=== PATIENT | female | born 1975 | race Caucasian/White ===

== ENCOUNTER → 2017-02-21 | Outpatient (CLI) | payer OTHER, SELFPAY ==
[~2017-02-21] MED LIST: AMOX500 PO; Adipex-P37.5 MG PO; BUPR100ER PO; Cyclobenzaprine5 MG PO; DIAZ5 PO; DOCU100 PO; FLUO10 PO; IBUP800 PO; Imitrex50 MG PO; Norco 10-325 T1 EACH PO; OXYACE5T PO; PENVK250 PO; TRAM50 PO; Zofran Odt4 MG SL
== END ==
LOC: LAB SHORT 12:37 → PLD 12:37
DX: R23.4 Changes in skin texture (principal)
CPT/HCPCS: 88305

== ENCOUNTER → 2018-08-14 | Outpatient (CLI) | payer OTHER ==
[2018-08-16 18:06] LABS: HPV 16 Negative (Negative); HPV 18 Negative (Negative); HPV OTHER HR TYPES Positive (Negative)
== END | disposition home or self-care (01) ==
LOC: LAB SHORT 14:45 → LAB 14:45
PROVIDERS: Obstetrics & Gynecology
DX: Z01.419 Encounter for gynecological examination (general) (routine) without abnormal findings (principal)
CPT/HCPCS: 87624; 87625; G0123

== ENCOUNTER → 2020-11-17 | Outpatient (CLI) | payer OTHER ==
[2020-11-18 14:10] LABS: HPV 16 Negative (Negative); HPV 18 Positive (Negative); HPV OTHER HR TYPES Negative (Negative)
== END | disposition home or self-care (01) ==
LOC: LAB 16:45 → LAB SHORT 16:45
PROVIDERS: Family Medicine
DX: Z01.419 Encounter for gynecological examination (general) (routine) without abnormal findings (principal)
CPT/HCPCS: 87624; G0123

== ENCOUNTER → 2021-04-28 | Outpatient (CLI) | payer OTHER ==
[~2021-04-28] MED LIST changes: +IMITREX50 M2 PO; +ONDA4ODT MM
== END | disposition home or self-care (01) ==
LOC: LAB SHORT 09:52 → LAB 09:52
DX: N30.00 Acute cystitis without hematuria (principal); R30.0 Dysuria; R35.0 Frequency of micturition
CPT/HCPCS: 87077; 87086; 87147; 87186

== ENCOUNTER → 2023-11-10 | Outpatient (CLI) | payer BC ==
[2023-11-18 06:54] LABS: HPV HIGH RISK BY TMA Detected; HPV SOURCE Vaginal
[2023-11-20 13:41] LABS: HPV GENOTYPE 16 BY TMA Not Detected; HPV GENOTYPE 18/45 BY TMA Not Detected; HPVG SOURCE Vaginal
== END | disposition home or self-care (01) ==
LOC: LAB SHORT 09:47 → LAB 09:47
PROVIDERS: Family Medicine
DX: Z01.419 Encounter for gynecological examination (general) (routine) without abnormal findings (principal)
CPT/HCPCS: 87624; 87625; G0123

== ENCOUNTER → 2023-12-27 | Outpatient (CLI) | payer BC ==
[2023-12-27 09:51] LABS: Source, Urine Clean Catch
[2023-12-27 13:53] LABS: Appearance, Urine Hazy (Clear); Bilirubin, Urine Neg (Neg); Blood, Urine Neg (Neg); Glucose Qualitative, Urine Neg (Neg); Ketones, Urine Neg (Neg); Leukocyte Esterase, Urine Neg (Neg); Nitrite, Urine Neg (Neg); Protein, Urine Neg (Neg); Urobilinogen, Urine NORM (Normal); pH, Urine 6.5 (5.0-8.0)
[2023-12-27 14:12] LABS: Color, Urine Pale Yellow (P-Yellow)
[2023-12-27 14:37] LABS: Amorphous Light (0-Heavy); Bacteria Rare /hpf; Red Blood Cells, Urine 0-2 /hpf (0-2); Squamous Epithelial Cells Few /hpf (Few); White Blood Cells, Urine 0-2 /hpf (0-5)
== END ==
LOC: LAB SHORT 09:50 → LAB 09:50
PROVIDERS: Obstetrics & Gynecology
DX: N39.3 Stress incontinence (female) (male) (principal)
CPT/HCPCS: 81001

== ENCOUNTER 2024-03-15 11:00 | Inpatient (IN) | payer BC ==
[2024-03-15] VITALS (18 sets, daily range): BP systolic 115–144; BP diastolic 71–98
[~2024-03-15] VITALS: Ht 157.5 cm; Wt 88.4 kg
[~2024-03-15 11:00] MED LIST changes: +BUPR75 PO; +Bupivacaine 0.5% W/EPI 1:200000 SDV 30 ML Vial ONE; +PROP10 PO
[2024-03-15] MEDS ORDERED: Lactated Ringer's 1,000 ML IV SCH ×2 (11:20→14:20)
--- NOTE | 2024-03-15 12:08 | NUR ---
History, Chart, Medications and Allergies reviewed before start of procedure. Patient up to Ambulate independently. Gait steady. Pre-Op teaching done. Pt verbalizes understanding. Patient confirms NPO status and agrees with scheduled surgery. Patient States Post-Procedure ride home has been arranged. Patient removed contact lenses & gave to spouse. Nose ring removed & placed in bag with personal belongings. Partial denture left in per anesthesiologist.
[2024-03-15] MEDS ORDERED: Rocuronium Bromide 10 MG/ML 5ML Injection IV ONE (12:12)
[2024-03-15] MEDS ORDERED: FentaNYL Citrate 50 MCG/ML 2 ML Injection ONE ×3 (12:12→14:29)
[2024-03-15] MEDS ORDERED: Midazolam HCl 1MG / ML 2ML Vial ONE (12:12)
[2024-03-15] MEDS ORDERED: propofoL 20 ML IV ONE (12:12)
[2024-03-15] MEDS ORDERED: CeFAZolin Sodium 2,000 MG in NS 100 ML IV SCH (12:20)
--- NOTE | 2024-03-15 12:36 | NUR ---
Partial denture removed per pt's request, placed with belongings by patient.
[2024-03-15] MEDS ORDERED: Ketorolac Tromethamine 30mg Vial ONE (12:40)
[2024-03-15] MEDS ORDERED: Ondansetron HCl 2 MG / ML 2ML Vial ONE (12:40)
[2024-03-15] MEDS ORDERED: Dexamethasone Sod Phos 10 MG/ML 1ML VIAL ONE (12:40)
[2024-03-15] MEDS ORDERED: Sugammadex Sodium 200 MG/2ML SDV (100 MG/ML) ONE (12:41)
[2024-03-15] MEDS ORDERED: Cyclobenzaprine HCl 10 MG Tab PO PRN (14:10)
[2024-03-15] MEDS ORDERED: FLU VACC TS2024-25(6MOS UP)/PF 45 MCG/0.5 ML SYRINGE IM SCH (14:15)
[2024-03-15] MEDS ORDERED: Metoclopramide HCl 5MG / ML 2ML Vial IV PRN (14:15)
[2024-03-15] MEDS ORDERED: Metoclopramide HCl 10 MG Tab PO PRN (14:15)
[2024-03-15] MEDS ORDERED: Acetaminophen 325 MG TABLET PO PRN (14:15)
[2024-03-15] MEDS ORDERED: Ondansetron HCl 2 MG / ML 2ML Vial IV PRN (14:15)
[2024-03-15] MEDS ORDERED: Ondansetron 4 MG TAB PO PRN (14:15)
[2024-03-15] MEDS ORDERED: DiphenhydrAMINE HCL 25 MG Cap PO PRN (14:15)
[2024-03-15] MEDS ORDERED: HYDROmorphone HCl/Pf 1MG SYR IV PRN (14:20)
[2024-03-15] MEDS ORDERED: OxyCODONE HCL 5 MG TAB PO PRN (14:20)
[2024-03-15] MEDS ORDERED: Simethicone 80 MG Chew PO PRN (14:20)
[2024-03-15] MEDS ORDERED: Ketorolac Tromethamine 30mg Vial IV PRN (14:25)
--- NOTE | 2024-03-15 15:07 | NUR ---
PT ARRIVED TO THE ROOM AT APPROXIMATELY 1505. SHE IS DROWSY BUT WAKES WHEN SPOKEN TO. PAIN 3-05/17. PT PROVIDED WITH CALL LIGHT. PT'S SISTER IS AT THE BEDSIDE.
--- NOTE | 2024-03-15 19:30 | NUR ---
NURSE NOTE PT EDUCATED ON NEEDING TO HAVE PITTS REMOVED AFTER 1999, ALONG WITH AMBULATING AND 2 POST VOID/BLADDER SCANS PER SURGEONS ORDERS. PT AND FAMILY VERBALIZED UNDERSTANDING. PLAN THEN DEVELOPED WITH PATIENT TO MEDICATE AND MANAGE PAIN FIRST, THEN AMBULATE IN HALLWAY WITH 2 STAFF/GB WHEN PATIENT FELT COMFORTABLE, HAVE PITTS REMOVED AFTER RETURNING TO BED AND ATTEMPT TO AMBULATE WITH SBA TO BATHROOM TO VOID AND BLADDER SCAN AFTER. PT, FAMILY, SIDEWALK INSPECTOR, AND THIS RN AGREED ON PLAN WITH A [employer] OF BEFORE 0000.
--- NOTE | 2024-03-15 20:08 | NUR ---
SHIFT SUMMARY PT IS POD#0 FROM A&P REPAIR WITH CYSTOSCOPY. PAIN MANAGED WITH OXY AND TYLENOL. PT IS TOLERATION PO. SHE CALL APPROPRIATELY. PT IS HAVING LIGHT VAGINAL BLEEDING. BEDSIDE REPORT GIVEN TO ALE LANDA.
[2024-03-15] MEDS ORDERED: BuPROPion HCl 75 MG Tab PO SCH (21:00)
[2024-03-16] VITALS (15 sets, daily range): BP systolic 100–125; BP diastolic 67–87
[2024-03-16] MEDS ORDERED: NS 1,000 ML IV ONE ×2 (00:40)
[2024-03-16 00:52] LABS: BASOPHILS ABSOLUTE AUTO 0.01 K/mm3 (0.00-0.23); BASOPHILS PERCENT AUTO 0 % (0-2); EOSINOPHILS PERCENT AUTO 0 % (0-6); Hematocrit 36.6 % (33.0-51.0); Hemoglobin 12.5 g/dL (11.5-16.0); IMMATURE GRAN ABSOLUTE AUTO 0.04 K/mm3 (0.00-0.10); IMMATURE GRAN PERCENT AUTO 0 % (0-1); LYMPHOCYTES PERCENT AUTO 16 % (21-46); MONOCYTES ABSOLUTE AUTO 0.56 K/mm3 (0.16-1.47); MONOCYTES PERCENT AUTO 5 % (4-13); Mean Corpuscular HGB 29.9 pg (26.0-34.0); Mean Corpuscular HGB Conc 34.2 g/dL (31.5-36.5); Mean Corpuscular Volume 88 fL (80-100); Mean Platelet Volume 9.3 fL (9.1-12.4); NEUTROPHILS ABSOLUTE AUTO 9.65 K/mm3 (1.96-9.15); NEUTROPHILS PERCENT AUTO 79 % (41-73); Platelet Count 281 K/mm3 (150-400); RDW Coefficient Variation 13.5 % (11.7-14.2); RDW Standard Deviation 43.2 fL (35.1-46.3); Red Blood Cell Count 4.18 M/mm3 (3.80-5.20); White Blood Cell Count 12.16 K/mm3 (4.00-11.30)
[2024-03-16 01:20] LABS: Bun/Creatinine Ratio 13.7 (12.0-20.0); Calcium, Blood 9.4 mg/dL (8.5-10.1); Creatinine, Blood 0.8 mg/dL (0.40-1.00); Potassium, Blood 3.8 mmol/L (3.5-5.5)
[2024-03-16] MEDS ORDERED: CeFAZolin Sodium 2,000 MG in NS 100 ML IV ONE (02:15)
--- NOTE | 2024-03-16 03:53 | NUR ---
TRANSFER NOTE PT ARRIVED FROM SURGICAL FLOOR RM 223 AT 0105 FOLLOWING INCREASE IN LOWER AB/PELVIC PAIN RIGHT SIDE AND NEAR SYNCOPAL EPISODE UPON GETTING UP TO RESTROOM. [employer] VAT WORKER WAS CALLED AND 1L NS BOLUS STARTED AND PRESENT ON ARRIVAL. (PT TAKEN FOR AB/PELVIC CT BEFORE ARRIVAL HERE). BLOOD CLOTS WERE NOTED ON URINATION. PT VITALS STABLE. NSR RATE 90'S WITH BP OF 114/78 (89). SATURATION 100% ON 6L WHICH WAS QUICKLY TITRATED DOWN TO 1L. PITTS WAS INSERTED AND SMALL BLOOD CLOTS NOTED. DR MCWILLIAMS PACKED THE VAGINA WITH PACKING GAUZE, WITH CONSIDERABLE PAIN TO PT, EVEN AFTER PRETREATMENT OF PAIN WITH DILAUDID. PAIN 6/10 1 HR AFTER AND SECOND DOSE OF DILAUDID GIVEN, GETTING PAIN TO 4/10, DESCRIBED A PRESSURE LIKE PAIN. HEATING PAD APPLIED AT 107F. 2 GRAM CEFAZOLIN ADMINISTERED AND LR INFUSING AT 125ML/HR. LABS DRAWN AT [employer] VAT WORKER SHOWED STABLE H&H AND LACTIC ACID OF 3.0. REPEAT CBC SCHEDULED FOR 0500. PT DENIES CHEST PAIN, SOB, N/V, DIZZINESS, [place]. PLAN IS TO TREAT PAIN, AND PENDING MORNING LABS AND OFFICIAL CT READING, TRANSFER PT BACK TO SURGICAL FLOOR. PT HAS CALL SOLOMON MCKEON, AND HER FRIEND, GEMINI, IS IN THE ROOM WITH HER.
[2024-03-16 05:28] LABS: Hematocrit 33.7 % (33.0-51.0); Hemoglobin 11.3 g/dL (11.5-16.0); Mean Corpuscular HGB 30.1 pg (26.0-34.0); Mean Corpuscular HGB Conc 33.5 g/dL (31.5-36.5); Mean Corpuscular Volume 90 fL (80-100); Mean Platelet Volume 9.1 fL (9.1-12.4); Platelet Count 241 K/mm3 (150-400); RDW Coefficient Variation 13.7 % (11.7-14.2); RDW Standard Deviation 44.9 fL (35.1-46.3); Red Blood Cell Count 3.76 M/mm3 (3.80-5.20); White Blood Cell Count 9.33 K/mm3 (4.00-11.30)
--- NOTE | 2024-03-16 06:54 | NUR ---
PT LYING IN BED, ALERT AND ORIENTED TO ALL. NSR WITH STABLE BP AND SAT OF 96% ON RA. PITTS PATENT AND DRAINING, NO SIGNS OF BLOOD IN URINE. LR INFUSING AT 125ML/HR. PT STILL C/O LOWER RIGHT AB/PELVIC PAIN, PRESSURE-LIKE. PT WAS GIVEN PAIN MEDS, BOTH OXYCODONE AND DILUADID 30 MIN APART, AND THE PT'S PAIN REMAINED A 6/10. SHE FELT SOME RELIEF THOUGH LESS THAN BEFORE WHEN MEDICATED. HEATING PAD IS STILL IN PLACE. CT SCAN SHOWED HEMATOMA ON RIGHT BETWEEN BLADDER AND RECTUM. DR MCWILLIAMS CALLED WITH THE RESULTS. HEMOGOLBIN 11.3 DOWN FROM 12.5 AT MIDNIGHT. LACTIC ACID DECREASED FROM 3 TO 1.4. REPORT GIVEN TO ONCOMING NURSE.
--- NOTE | 2024-03-16 07:53 | NUR ---
AM NOTE... ASSUMED CARE OF PT AT 0700, PT IS A&Ox4. PT IS S/P BLADDER SLING SURGERY ON 03/15. PT C/O OF 07/17 PAIN TO THE RIGHT SIDE OF HER ABD. PT MEDICATED PER EMAR WITH GOOD RESULTS FROM AT 07/17 TO 04/16. ABD IS SOFT BUT VERY TENDER TO PALPATION. BT ARE PRESENT AND HYPERACTIVE. VAGINAL PACKING IS NOTED WITH A SMALL AMOUNT OF DRY BLOOD AT THE ENTRENCE TO THE VAGINA. PT IS ON RA WITH O2 SATS>95% L/S CLEAR T/O. PT IS IN SR IN THE 90'S. BP IS STABLE WITH SBPs 90'S-110'S MAPS>70. NO EDEMA NOTED ON THIS ASSESSMENT.
[2024-03-16] MEDS ORDERED: OxyCODONE HCL 5 MG TAB PO PRN (09:40)
--- NOTE | 2024-03-16 10:15 | NUR ---
PT UPDATE... THIS RN SPOKE WITH DR. MCWILLIAMS, PLANS FOR LABS AT [address] MCWILLIAMS WILL SEE THE PT THIS AFTERNOON AND CHANGE THE VAGINAL PACKING AT THAT TIME.
--- NOTE | 2024-03-16 10:45 | NUR ---
PT TRANSFER REPORT WAS GIVEN TO WALESKA LANDA ON SURGICAL FLOOR. ALL PT'S BELONGINGS WERE PACKED AND SENT WITH THE PT. PT'S VS STABLE AT THE TIME OF TRANSFER.
--- NOTE | 2024-03-16 11:00 | NUR ---
TRANSFER NOTE PT TO ROOM 226 FROM ICU. PT IS ALERT, RESPONSIVE, PAIN IS TOLERABLE AND DENIES NAUSEA. TOLERATING PO FLUIDS AND REG DIET. VSS. NO VAG BLEEDING NOTED. PITTS IN PLACE DRAINING YELLOW URINE. PAS ON. FAMILY AT BEDSIDE. CALL LIGHT IN REACH.
[2024-03-16 12:16] LABS: Hematocrit 31.9 % (33.0-51.0); Hemoglobin 10.7 g/dL (11.5-16.0); Mean Corpuscular HGB 30.1 pg (26.0-34.0); Mean Corpuscular HGB Conc 33.5 g/dL (31.5-36.5); Mean Corpuscular Volume 90 fL (80-100); Mean Platelet Volume 9.4 fL (9.1-12.4); Platelet Count 243 K/mm3 (150-400); RDW Coefficient Variation 13.8 % (11.7-14.2); RDW Standard Deviation 45.1 fL (35.1-46.3); Red Blood Cell Count 3.56 M/mm3 (3.80-5.20); White Blood Cell Count 6.89 K/mm3 (4.00-11.30)
[2024-03-16] MEDS ORDERED: Acetaminophen 325 MG TABLET PO PRN (14:05)
--- NOTE | 2024-03-16 18:45 | NUR ---
SHIFT SUMMARY PT IS ALERT, RESPONSIVE, FOLLOWING COMMANDS. TOLERATING REG DIET W/O N/V. PITTS IN PLACE DRAINING YELLOW URINE, TO BE PULLED WHEN PT IS AMBULATING PER DR. MCWILLIAMS. VSS. PAIN TOLERABLE W/ PAIN MEDS PER EMAR. SCANT VAG BLEEDING NOTED. PT USING CALL LIGHT APPROPRIATELY, SPOUSE AT BEDSIDE.
[2024-03-16] MEDS ORDERED: Cyclobenzaprine HCl 10 MG Tab PO PRN (22:20)
[2024-03-17 03:18] VITALS: BP 102/67
[2024-03-17 05:10] LABS: Hematocrit 30.8 % (33.0-51.0); Hemoglobin 10.2 g/dL (11.5-16.0); Mean Corpuscular HGB Conc 33.1 g/dL (31.5-36.5); Mean Corpuscular Volume 91 fL (80-100); Mean Platelet Volume 9.3 fL (9.1-12.4); Platelet Count 219 K/mm3 (150-400); RDW Coefficient Variation 13.9 % (11.7-14.2); RDW Standard Deviation 45.5 fL (35.1-46.3); White Blood Cell Count 5.88 K/mm3 (4.00-11.30)
--- NOTE | 2024-03-17 06:27 | NUR ---
SHIFT SUMMARY POD 1-HERNIA REPAIR W/FUNDOPLICATION. REPORTS LOW PELVIS/ABD PAIN, MANAGED WELL W/2 TAB NORCO, GAS X & FLEXERIL PO. PT REPORTS SHE WAS FINALLY ABLE TO SLEEP TONIGHT. MIN AMOUNT SANGUINOUS DRAINAGE ON PETTY & ZOIE PAD. PT UP 2x THIS SHIFT W/1 ASSIST & GB TO AMBULATE SHAVER. REPORTED FEELING A LITTLE DIZZY UPON FIRST STANDING OOB, NO SYNCOPE NOTED. AOX4. VSS. DENIES N/V OR DYSPNEA. CALL LIGHT IN REACH.
[2024-03-17 07:27] VITALS: BP 106/76
[2024-03-17] MEDS ORDERED: Polyethylene Glycol 3350 17 gm PO PRN (09:25)
[2024-03-17] MEDS ORDERED: Docusate Sodium 100 MG Cap PO SCH (10:00)
--- NOTE | 2024-03-17 11:08 | NUR ---
PITTS REMOVED AT THIS TIME. SCANT DARK/RED DRAINAGE ON PERIPAD. PT TOLERATED REMOVAL WELL. SHE IS ANXIOUS AT REMOVAL GIVEN HER HISTORY. REASSURED PATIENT THAT WE WILL BE MONITORING HER CLOSELY, REEDUCATED OSTEOPATHIC NEUROLOGIST LIGHT USE TO NOTIFY ME QUICKLY OF CHANGES.
[2024-03-17] MEDS ORDERED: ACET325 PO (14:36)
[2024-03-17] MEDS ORDERED: OXAYDO5 M1 PO (14:36)
--- NOTE | 2024-03-17 15:47 | NUR ---
DISCHARGE POD 2 A&P REPAIR PT HAS HAD SMALL AMOUNT OF DRAINAGE ON ZOIE PAD DURING SHIFT. DARK RED IN COLOR. PT VOIDING MULTIPLE TIMES DURING SHIFT, AMBULATING WELL. PAIN WELL CONTROLLED PER EMAR. ALL INSTRUCTIONS GONE OVER WITH PATIENT. ESCORTED OUT VIA WHEELCHAIR.
== END 2024-03-17 15:40 | disposition home or self-care (01) | DRG 748 ==
LOC: ICUE 11:00 → ORSCMMR 11:00 → EDSTATUS 12:30 → ORD 12:30 → ORSCMMR 12:30 → SURS 15:11 → ICUE 03-16 01:00 → SURS 03-16 01:00 → ICUE 03-16 04:01 → SURS 03-16 11:29
PROVIDERS: ADMIT Obstetrics & Gynecology
PROC: 0JQC0ZZ Repair Pelvic Region Subcutaneous Tissue and Fascia, Open Approach (ICD-10-PCS; 2024-03-15)
PROC: 0TSD0ZZ Reposition Urethra, Open Approach (ICD-10-PCS; 2024-03-15)
PROC: 0JQC0ZZ Repair Pelvic Region Subcutaneous Tissue and Fascia, Open Approach (ICD-10-PCS; principal; 2024-03-15 12:30)
PROC: 0JQC0ZZ Repair Pelvic Region Subcutaneous Tissue and Fascia, Open Approach (ICD-10-PCS; 2024-03-15 12:30)
DX: N81.4 Uterovaginal prolapse, unspecified (principal); N99.840 Postprocedural hematoma of a genitourinary system organ or structure following a genitourinary system procedure; D62 Acute posthemorrhagic anemia; N39.3 Stress incontinence (female) (male); F32.A Depression, unspecified; Z79.899 Other long term (current) drug therapy; Z90.710 Acquired absence of both cervix and uterus; Z98.51 Tubal ligation status
CPT/HCPCS: 36415; 74176; 80048; 83605; 85025; 85027; 86850; 86900; 86901; 86923; 94760; 94762; 96374; 96375; 96376; A9270; C1771; G0378; J0690; J1100; J1171; J1885; J2250; J2405; J2704; J3010; J7030; J7120